=== PATIENT | male | born 1975 | race Caucasian/White ===

== ENCOUNTER 2016-06-10 04:09 | Emergency (ER) | payer SELFPAY ==
[2016-06-10 04:53] LABS: Hematocrit 43.7 % (35.5-45.6); Hemoglobin 14.7 gm/dl (11.8-15.2); Mean Corpuscular HGB Conc 34 % (32-34); Mean Corpuscular Hemoglobin 29 pg (28-32); Mean Corpuscular Volume 87 fl (84-94); Platelet Count 252 K/mm3 (140-440); White Blood Count 11.2 K/mm3 (4.5-11.0)
[2016-06-10 05:00] LABS: INR 0.9 (0.87-1.13); Partial Thromboplastin Time 26.9 Sec. (24.2-36.6)
--- NOTE | 2016-06-10 05:10 | Cat Scan Report ---
FINAL REPORT EXAM: CT HEAD/BRAIN WO CON HISTORY: altered mental status, found down TECHNIQUE: CT of the head was performed. No intravenous contrast was administered. PRIORS: None. FINDINGS: There is no evidence of intracranial hemorrhage. There is no edema, mass effect or midline shift. There are no abnormal extra-axial fluid collections. The ventricles are appropriate for brain volume. There is no skull fracture seen. The visualized aspects of the sinuses are clear. IMPRESSION: There is no acute intracranial abnormality identified.
[2016-06-10 05:12] LABS: Creatine Kinase MB 4.4 ng/mL (0.0-4.0)
--- NOTE | 2016-06-10 05:12 | Cat Scan Report ---
FINAL REPORT EXAM: CT CERVICAL SPINE WO CON HISTORY: altered mental status, found down TECHNIQUE: A noncontrast CT of the cervical spine was performed. Coronal and sagittal reformatted images were obtained. PRIORS: None. FINDINGS: Vertebral body heights and alignment are maintained. There is no evidence of acute fracture. There is no evidence of significant spinal stenosis. IMPRESSION: There is no evidence of cervical spine fracture or subluxation.
[2016-06-10 05:13] LABS: Alanine Aminotransferase 29 units/L (7-56); Albumin/Globulin Ratio 1.3 %; Alkaline Phosphatase 67 units/L (35-129); Anion Gap 20 mmol/L; Bilirubin,Total < 0.20 mg/dL (0.1-1.2); Blood Urea Nitrogen 13 mg/dL (9-20); Calcium 8.2 mg/dL (8.4-10.2); Carbon Dioxide 25 mmol/L (22-30); Creatine Kinase 207 units/L (55-170); Glucose 142 mg/dL (75-100); Potassium 3.5 mmol/L (3.6-5.0); Sodium 143 mmol/L (137-145)
[2016-06-10] MEDS ORDERED: VITAMIN B-1 100 MG, FOLVITE 1 MG, INFUVITE 10 ML in NACL 0.9% 1000 ML 1,000 ML IV ONE (07:02)
[2016-06-10] MEDS ORDERED: NARCAN 0.4 MG/1 ML IV ONE (07:03)
[2016-06-10] MEDS ORDERED: ZOFRAN IV ONE (07:05)
[2016-06-10 08:01] LABS: Basophils % (Manual) 0 % (0.0-1.8); Blastocytes % (Manual) 0 %; Diff Status Complete; RBC Morphology Normal
--- NOTE | 2016-06-10 11:05 | Emergency Department Report ---
HPI - General Chief Complaint: Alcohol Time Seen by Provider: 06/10/16 06:49 - HPI HPI: The patient is a 41-year-old male who presents for evaluation of altered mental status. Per EMS the patient was found down with confusion approximately one hour prior to arrival. The patient states that he consumed a large amount of alcohol last night, passed out after experiencing constant severe lightheadedness, exacerbated with position changes. The patient denies fever, head injury, chest pain, dyspnea, hemoptysis, headache, neck pain, neck stiffness, vision or hearing changes, smell or taste changes, paresthesias, facial drooping, slurred speech, seizure-like activity, urine or bowel incontinence or retention, or other focal neurological deficit. ED Past Medical Hx - Past Medical History Previous Medical History?: No - Surgical History Past Surgical History?: No - Social History Smoking Status: Unknown if ever smoked Substance Use Type: Alcohol ED Review of Systems ROS: Stated complaint: AMS Other details as noted in HPI Constitutional: reports tiredness denies: fever ENT: denies: throat or neck pain Respiratory: denies: cough, shortness of breath Cardiovascular: denies: chest pain Endocrine: denies unexplained weight loss or gain Gastrointestinal: denies: abdominal pain, nausea Genitourinary: denies: dysuria Musculoskeletal: denies: leg swelling Skin: denies: rash Neurological: denies: headache Hematological/Lymphatic: denies: easy bleeding or easy bruising Psych: denies sadness or hopelessness Physical Exam - Physical Exam Vital Signs: Vital Signs 06/10/16 06/10/16 06/10/16 04:25 04:38 06:07 Temperature 98 F Pulse Rate 77 67 76 Respiratory 18 18 18 Rate Blood Pressure 127/60 Blood Pressure 122/60 115/74 [Left] O2 Sat by Pulse 96 94 89 Oximetry 06/10/16 07:14 Temperature Pulse Rate 80 Respiratory 15 Rate Blood Pressure Blood Pressure 107/70 [Left] O2 Sat by Pulse 97 Oximetry Physical Exam: General: well-nourished, well-developed, no acute distress Head: Normocephalic, atraumatic Eyes: normal sclera, EOMI, PERRL ENT: Mucous membranes are pale and dry Neck: No neck stiffness, no cervical adenopathy Respiratory: Breath sounds equal bilaterally, no wheezing, rales, or rhonchi Cardio: S1 and S2 present, no murmurs, rubs, gallops, capillary refill is delayed Abdomen: Normoactive bowel sounds, soft abdomen, no rigidity, no guarding or rebound tenderness Chest WALL/Back: No tenderness to palpation of the chest wall, no CVA tenderness with percussion Musc: No pitting edema Skin: No rash Neuro: Patient drowsy, gag reflex intact, protecting airway, mildly slurred speech, no facial drooping, no sensation motor deficit in the arms or legs, no [place] deficit with finger to nose testing, reflexes 2+ symmetric on DTR testing, no abnormal gait with ambulation Psych: Normal affect ED Course Vital Signs 06/10/16 06/10/16 06/10/16 04:25 04:38 06:07 Temperature 98 F Pulse Rate 77 67 76 Respiratory 18 18 18 Rate Blood Pressure 127/60 Blood Pressure 122/60 115/74 [Left] O2 Sat by Pulse 96 94 89 Oximetry 06/10/16 07:14 Temperature Pulse Rate 80 Respiratory 15 Rate Blood Pressure Blood Pressure 107/70 [Left] O2 Sat by Pulse 97 Oximetry ED Medical Decision Making - Lab Data Result diagrams: 06/10/16 04:31 06/10/16 04:31 - Medical Decision Making The patient was seen and examined by myself. The patient is placed on a hospital monitor and continuous pulse ox. On initial evaluation, the patient was found to be in no distress. EKG was negative for findings suggestive of acute cardiac infarct. The patient was administered Narcan without resolution of drowsiness. Labs and imaging are obtained. Lab results revealed elevated EtOH level of 0.3, and otherwise labs were non-concerning including levels of troponin, WBC, renal function. The patient is given a banana bag infusion for treatment of dehydration. CT scan of the head and neck are both negative. The patient was monitored in the emergency department for greater than 2 hours. The patient was reevaluated and reported that his lightheadedness and tiredness were resolved. The patient is stable for discharge with outpatient follow-up. The patient is given follow- up and return instructions. The patient expressed understanding and agreed with the plan. The patient is discharged in stable condition. Critical care attestation.: If time is entered above; I have spent that time in minutes in the direct care of this critically ill patient, excluding procedure time. ED Disposition Clinical Impression: Dehydration Alcohol intoxication Qualifiers: Complication of substance-induced condition: uncomplicated Qualified Code(s): F10.120 - Alcohol abuse with intoxication, uncomplicated Altered mental status Qualifiers: Altered mental status type: somnolence Qualified Code(s): R40.0 - Somnolence Disposition: DISCHARGED TO HOME OR SELFCARE Is pt being admited?: No Does the pt Need Aspirin: No Condition: Stable Instructions: Alcohol Intoxication (ED), Abuse of Alcohol (ED), Altered Mental Status (ED) Referrals: PRIMARY CARE, [Primary Care Provider] - 3-5 Days Time of Disposition: 11:03 Print Language: [id number]
[2016-06-10 11:39] VITALS: BP 109/74
== END 2016-06-10 11:38 | disposition home or self-care (01) ==
LOC: ED 04:09
DX: F10.120 Alcohol abuse with intoxication, uncomplicated (principal); R40.0 Somnolence; E86.0 Dehydration
CPT/HCPCS: 36415; 70450; 72125; 80053; 82140; 82550; 82553; 84484; 85007; 85025; 85610; 85730; 86850; 86900; 86901; 93005; 93010; 96365; 96366; 96375; 99285; G0480; J2310; J2405; J3411; J7030; 80320